=== PATIENT | male | born 1990 | race Caucasian/White ===

== ENCOUNTER 2017-02-01 08:48 | Emergency (ER) | payer OTHER | END 2017-02-01 10:57 | disposition home or self-care (01) | LOC: D.ER 08:48 | DX: S05.02XA Injury of conjunctiva and corneal abrasion without foreign body, left eye, initial encounter (principal); X58.XXXA Exposure to other specified factors, initial encounter; Y93.89 Activity, other specified; Y92.89 Other specified places as the place of occurrence of the external cause ==

== ENCOUNTER 2017-11-01 07:43 | Emergency (ER) | payer MEDICAID | END 2017-11-01 08:01 | disposition home or self-care (01) | LOC: D.ER 07:43 | DX: Z63.9 Problem related to primary support group, unspecified (principal); Z03.89 Encounter for observation for other suspected diseases and conditions ruled out ==